=== PATIENT | female | born 1960 | race Caucasian/White ===

== ENCOUNTER → 2016-06-28 | Day surgery (SDC) | payer BC ==
[2016-06-15 10:35] VITALS: Ht 162.6 cm; Wt 68.2 kg
[~2016-06-28] VITALS: Ht 162.6 cm; Wt 68.2 kg
[~2016-06-28] MED LIST: ATROPINE SULFATE 0.1 MG/ML 5ML SYR IV PRN; BUPIVACAINE 0.5 % 5 MG/1 ML MPF 30ML VIAL ONE; BUPIVACAINE/EPINEPHRINE 0.5% MPF 1:200,000 30 ML VIAL ONE; CALC500C70 PO; CEFAZOLIN 2000 MG/60 ML D5W IV SCH; DEXAMETHASONE SOD INJ 4 MG/ML VIAL ONE; DTRSR10 PO; ESCI1TAB6 PO; EpHEDrine SULFATE INJ 50 MG/ML AMP IV PRN; EpHEDrine SULFATE INJ 50 MG/ML AMP ONE; FENTANYL CITRATE INJ 50 MCG/1 ML 2 ML VIAL IV PRN; FENTANYL CITRATE INJ 50 MCG/1 ML 2 ML VIAL ONE; GLUCTAB18; LACTATED RINGER'S 1000ML 1,000 ML IV SCH; LIDOCAINE HCL 2% 2 ML VIAL (20MG/ML) ONE; MIDAZOLAM HCL 1 MG/ML 2ML VIAL ONE; MULT-506 PO; MoRPHine SULFATE PF 1 MG/ML 10 ML AMP/VIAL ONE; ONDANSETRON INJ 2 MG/ML 2 ML VIAL IV PRN; ONDANSETRON INJ 2 MG/ML 2 ML VIAL ONE; PANT40TA PO; PROPOFOL IV EMULSION 10 MG/ML 20 ML VIAL IV ONE; ROPIVACAINE 0.5% 5 MG/ML 30 ML VIAL ONE; SODIUM CHLORIDE 0.9% 1000ML 1,000 ML IV SCH
--- NOTE | 2016-06-28 06:48 | History & Physical Bridge Note ---
H&P Re-Evaluation Bridge Note: I have examined the patient, reviewed the History & Physical and in the interval since the performance of the History & Physical I have noted the following changes of clinical significance: No changes noted
--- NOTE | 2016-06-28 06:50 | Discharge Instructions ---
Discharge Instructions Visit Reason for Visit: Left Great Toe Mtpj Arthritis, Left Knee Meniscus Discharge Goals Goal(s): Decrease discomfort, Improve function Medications Stopped Medications Name(s): Stopped Meloxicam five days ago. Activity Recommendations Activity Limitations: as noted below Lifting Limitations: until after follow-up appointment Exercise/Sports Limitations: until after follow-up appointment May Resume Sexual Activity: when tolerated Driving or Machine Use: resume 1 day after discharge Weightbearing Status: Left partial Anesthesia . Post Anesthesia Instructions: If you have had General Anesthesia or IV Sedation: * Do not drive today. * Resume driving when surgeon permits. * Do not make important decisions or sign legal documents today. * Call surgeon for: 1. Temperature elevations greater than 101 degrees F. 2. Uncontrollable pain. 3. Excessive bleeding. 4. Persistent nausea and vomiting. 5. Medication intolerance (nausea, vomiting or rash). * For nausea and vomiting use only clear liquids such as: tea, soda, bouillon until nausea subsides, then gradually increase diet as tolerated. * If you have any concerns or questions, call your surgeon's office. If physician is unavailable and it is an emergency, call 911 or go to the nearest emergency room. . Instructions / Follow-Up Instructions / Follow-Up The following are instructions to follow after your Arthroscopic Knee Surgery. ACTIVITY RECOMMENDATIONS: * Minimize activity until your first visit after surgery. * No excessive walking, jogging, sports or laboring. * Return to activity is individualized. Most patients are able to return to every day activities within one month. * Return to sports or intensive labor usually occurs at 2-3 months. * Driving is not permitted until at least your first postoperative visit at a minimum. Please ask your doctor when it is safe to resume driving. If you have an automatic vehicle and your left leg has been operated on, then you may begin driving as soon as you are comfortable and can drive safely. SCHOOL/WORK RECOMMENDATIONS: * You may return to sedentary work or school when you are feeling more comfortable. This is usually 3-7 days after surgery. * Expect increased discomfort with increased activity. Continue to elevate and ice the leg as much as possible. MEDICATIONS: * You will have a prescription for pain medication and an anti-inflammatory medication after surgery. * Use the pain medication for severe pain and the anti-inflammatory for less severe pain. Once the pain medication has run out, try to use the anti-inflammatory medication. If this is not effective, contact the office for assistance. * The pain medication may cause nausea, constipation and drowsiness. You should see how they affect you before driving or similar activity. * The anti-inflammatory medication may cause stomach upset and bleeding. If this occurs let your doctor know immediately . * Take a stool softener like Colace or a laxative like Senokot to prevent constipation. DIET: * Resume previous diet. SPECIAL CARE: ICE: You have the option of an ice cooler, gel packs or ice bags. * If you have an ice cooler, refer to the instructions for that device. The ice cooler may be used continuously. * If you do not have an ice cooler, you will need to use ice bags or gel packs. Do not apply ice directly to the skin. Use a thin dressing or rehana shirt between the skin and ice bag. Apply ice for 20-30 minutes and repeat every 2-4 hours. This is especially important for the first 7-10 days after surgery. Once the pain improves, use ice as needed. ELEVATION: * Keep your leg elevated at or above the level of your heart as much as possible. * Expect some increased discomfort and swelling if you are standing for any length of time. * When lying down, avoid placing anything under your knee. Rather, prop your leg up by placing several pillows under your heel or calf. DRESSING: * Your dressing will be changed at your first therapy appointment approximately 4-5 days after surgery. Band-aids, tape strips or gauze may be applied. You may then change your dressing daily. * Reapply dressing followed by the Arturo wrap or Tubi-supervisor marble stockinet and EBIce cooling pad (if chosen). * Always wash your hands prior to touching the incision area. * Once the stitches are removed, you may leave the wound open to air or cover with an Arturo wrap or Tubi-supervisor marble stockinet. * If you have been given a white elastic stocking (DEN hose), wear as much as possible for the first 1-3 weeks depending on swelling. * Expect some bloody drainage for the first few days after surgery. * Leave the tape strips, if present, in place for 5-7 days. * Band-aids and gauze may be changed daily. CRUTCHES: * You will need to use crutches after surgery. * You may gradually progress to full weight bearing as tolerated and wean off the crutches unless otherwise advised. * Your therapist can provide assistance weaning off crutches. * Patients who have a microfracture done may need to be toe-touch weight- bearing for 4-6 weeks. BATHING: * You may shower or sponge-bathe immediately after surgery. * The dressing will need to be covered with a plastic bag or plastic wrap until the dressing is changed on the fourth or fifth day after surgery. * Once the dressing has been changed on the fourth or fifth day after surgery, you may shower and get the incision wet. * Wash with regular soap and water. * Do not bathe (submerge the incision), soak, swim or use a hot tub until the incision is completely healed over with normal skin and the doctor has given the OK to proceed. * There is no need to apply any ointments, powders or salves to your incision. * Do not apply alcohol or hydrogen peroxide directly to the incision. * Diluted peroxide (50:50 mixture with sterile saline) may be used to clean dried blood from around the incision area. BRACE: * Bracing is generally not needed after routine Arthroscopic Knee surgery. THERAPY: * You will begin therapy four or five days after surgery. * Organized therapy with the therapist is important for the first 4-6 weeks after surgery. During that time you will attend therapy 1-3 times per week. * You will also need to do daily exercises for range of motion and strength as instructed. PROBLEMS/QUESTIONS: * If you have any problems such as severe pain, numbness, tingling or high fevers or if you have any questions, please contact the office at [phone]. * It is not uncommon to have some numbness and tingling after the surgery especially if you have had a nerve block done. This should gradually improve over the first 1- 2 days. If this persists longer or worsens please contact the office. FOLLOW UP VISIT: * If not already scheduled, please call the office at to schedule a follow-up appointment for 10 days, 6 weeks and 3 months after surgery. Diet Recommendations Recommended Home Diet: resume previous diet Pending Studies Studies pending at discharge: no Medical Emergencies . Who to Call and When: Medical Emergencies: If at any time you feel your situation is an emergency, please call 911 immediately. . Non-Emergent Contact Non-Emergency issues call your: Specialist Call Non-Emergent contact if: temperature is above 101.5 . . "Provider Documentation" section prepared by Phil Lau.
--- NOTE | 2016-06-28 08:46 | [facility] Post Operative Brief Note ---
Immediate Operative Summary Operative Date Jun 28, 2016. Pre-Operative Diagnosis Left Great Toe Metatarsophalangeal Joint Arthritis, Left Knee Meniscus Tear, Degenerative Joint Disease, Retained Hardware Post-Operative Diagnosis Same Procedure(s) Performed Left Knee Arthroscopy, Chondroplasty of Patellofemoral Joint, Partial Medial Meniscectomy, Hardware Removal Left Tibia, Left Great Toe Chielectomy Surgeon Dr. Lau Copier Operator Surgeon(s) Jenna Barry PA-C Estimated Blood Loss Trace Findings mtp djd/pf djd/mm tear/s/p acl Fluids (cc crystalloids) 700cc Specimens None Drains none Anesthesia lma/block Complication(s) None Disposition Recovery Room / PACU
--- NOTE | 2016-06-28 09:14 | OPERATIVE REPORT ---
DATE OF OPERATION: 06/28/2016 PREOPERATIVE DIAGNOSIS: Left great toe hallux rigidus, left knee medial meniscal tear with degenerative joint disease, and left tibia retained hardware. POSTOPERATIVE DIAGNOSIS: Left great toe, left knee, and left tibia same. PROCEDURE: Left knee arthroscopy, chondroplasty of the patellofemoral joint, partial medial meniscectomy, open hardware removal of left tibia, and left great toe cheilectomy. SURGEON: Dr. Lau. DRILLING FIELD SPECIALIST: Matrin Barry PA-C. HISTORY OF PRESENT ILLNESS: This 55-year-old white female presented to the office with complaints of medial left knee pain, as well as sensitivity over some previously placed ACL hardware. She also had a bone spur and pain in her left great toe. She had tried conservative care measures without success. The patient elected to proceed with surgical intervention on all 3 sites after being educated about potential risks and outcomes. OPERATION: The patient was administered a regional block and then taken to the operating room where she was given a general anesthetic. She was prepped and draped in the usual sterile fashion. Please see Dr. Lau's operative report for specifics of the procedure. I was present for the entire case from initial patient positioning through final wound closure. Assistance was provided in tissue retraction, hemostasis, arthroscopy, and final wound closure. The patient was taken to the recovery room in satisfactory condition. I attest to the content of the Intraoperative Record and any orders documented therein. Any exceptio ns are noted below.
--- NOTE | 2016-06-28 09:21 | OPERATIVE REPORT ---
DATE OF OPERATION: 06/28/2016 SURGEON: Phil Lau MD GARBAGE COLLECTOR SUPERVISOR: Martin Barry PA-C. No resident or fellow available. PREOPERATIVE DIAGNOSES: 1. Hallux rigidus, left great toe. 2. Retained hardware, left proximal tibia. 3. Degenerative disease, medial meniscus tear, left knee and a history of ACL reconstruction. OPERATIONS PERFORMED: 1. Exam under anesthesia. 2. Diagnostic arthroscopy, left knee with partial medial meniscectomy and chondroplasty of patellofemoral joint. 3. Removal of the tibia hardware through separate incision. 4. Arthrotomy of MTP joint with cheilectomy of the left great toe. DESCRIPTION OF PROCEDURE: The patient was appropriately identified, site verified, consent verified, and 2 grams of Ancef confirmed as being given. The left lower extremity was examined revealing slight asymmetry to Alfredito with an endpoint, full range of motion, some patellofemoral incarceration and slight patella baja. A towel revealed decreased extension basically to about 5 degrees at most. Leg was then prepped and draped in usual routine fashion from toes to thigh and tourniquet was applied. After the leg was prepped and draped, tourniquet was inflated to 275 mmHg after exsanguination of limb with a rubber Esmarch bandage. The anteromedial tibia was exposed through the old incision. Dissection carried down to the bone and then the screw and washer and a suture removed, which was then irrigated and closed with 2-0 Vicryl and horizontal 3-0 nylon suture. The knee was then scoped through an inframedial and infralateral portal. Inspection of the joint revealed extensive synovitis, which was debrided anteriorly. A chondroplasty was performed of the trochlea and of the patella that had grade 3 changes on the patella and grade 3-4 changes on the trochlea. Some minor loose debris was removed. The lateral compartment was relatively healthy. There were post-surgical changes on the central third of the lateral meniscus. The ACL graft had some minor fraying, which was debrided. The bulk of it was intact. The medial meniscus had a posterior horn tear with a flap and horizontal cleavage. It was trimmed to a stable balanced contoured rim with hand and power instrumentation. There were some grade 2-3 changes of the posteromedial tibia. There were also some grade 2 changes of the medial femoral condyle. This part of the procedure was then terminated. All instruments and fluid removed. The portals closed with 3-0 nylon. The prepped part of the foot was then opened up and then repainted with Betadine and then, the MTP dorsal medial incision made. Care taken to protect the sensory nerves. The joint was entered. The joint was then dissected around by releasing some of the soft tissue with silver bunionectomy was performed and a cheilectomy performed. There was an extensive osteophyte superiorly and laterally on the MTP joint. There was a grade 4 area of bare cartilages. This was all removed as well. Once this was resected, the toe was then inspected. The remaining articular surface of the metatarsal head had grade 2 changes and the base of the proximal phalanx was relatively healthy. The wound was then irrigated. The capsule was then closed. The extensor hallucis longus was recentered. Once this was done, the extension was improved about 5 degrees to about 45 degrees. The wound was then irrigated and then closed with horizontal 3-0 nylon sutures. Appropriate dressing applied as well as DEN. The patient was then transferred to recovery room in satisfactory condition having tolerated the procedure well. Estimated blood loss was trace. Crystalloid was 700 mL. DVT prophylaxis per protocol. She can be weightbearing to tolerance. I attest to the content of the Intraoperative Record and any orders documented therein. Any exceptions are noted below. KAROL
--- NOTE | 2016-06-28 09:21 | Anesthesia Progress Nt - [facility] ---
Anesthesia Post Op Note Date & Time Jun 28, 2016 at 09:21 Vital Signs Pain Intensity: 0 Vital Signs Past 12 Hours Date Time Temp Pulse Resp B/P Pulse Ox O2 Delivery O2 Flow Rate FiO2 06/28/16 09:16 81 18 06/28/16 09:16 81 18 94 06/28/16 09:13 135/84 06/28/16 09:12 75 24 100 06/28/16 09:12 83 17 98 06/28/16 09:09 127/83 06/28/16 09:03 137/89 06/28/16 09:02 74 16 100 06/28/16 09:02 75 16 06/28/16 08:58 137/81 06/28/16 08:57 77 18 100 06/28/16 08:57 79 23 100 06/28/16 08:53 133/78 06/28/16 08:52 36.6 76 12 130/72 100 Mask 6 06/28/16 07:40 68 06/28/16 07:40 68 14 99 06/28/16 07:38 124/75 06/28/16 07:35 68 06/28/16 07:35 67 16 99 06/28/16 07:33 121/71 06/28/16 07:30 67 26 98 06/28/16 07:30 67 06/28/16 07:28 119/68 06/28/16 07:25 70 06/28/16 07:25 70 12 97 06/28/16 07:23 124/70 06/28/16 07:20 73 8 97 06/28/16 07:20 73 06/28/16 07:18 120/70 06/28/16 07:15 71 06/28/16 07:15 71 11 98 06/28/16 06:37 36.6 71 16 136/81 99 Room Air Notes Mental Status: alert / awake / arousable, participated in evaluation Pt Amnestic to Procedure: Yes Nausea / Vomiting: adequately controlled Pain: adequately controlled Airway Patency, RR, SpO2: stable & adequate BP & HR: stable & adequate Hydration State: stable & adequate Anesthetic Complications: no major complications apparent
[2016-06-28 09:39] VITALS: TEMP 36.6
[2016-06-28 10:10] VITALS: BP 137/91; PULSE 81; O2SAT 95
== END | disposition home or self-care (01) ==
LOC: X.SURG 06:18
PROVIDERS: ATTEND Physical Medicine & Rehabilitation Sports Medicine
DX: M23.222 Derangement of posterior horn of medial meniscus due to old tear or injury, left knee (principal); T84.84XA Pain due to internal orthopedic prosthetic devices, implants and grafts, initial encounter; Y83.1 Surgical operation with implant of artificial internal device as the cause of abnormal reaction of the patient, or of later complication, without mention of misadventure at the time of the procedure; M20.22 Hallux rigidus, left foot; M54.5 Low back pain; E66.9 Obesity, unspecified; Z88.0 Allergy status to penicillin

== ENCOUNTER → 2016-08-15 | Outpatient (CLI) | payer BC ==
[~2016-08-15] MED LIST changes: -ATROPINE SULFATE 0.1 MG/ML 5ML SYR IV PRN; -BUPIVACAINE 0.5 % 5 MG/1 ML MPF 30ML VIAL ONE; -BUPIVACAINE/EPINEPHRINE 0.5% MPF 1:200,000 30 ML VIAL ONE; -CEFAZOLIN 2000 MG/60 ML D5W IV SCH; -DEXAMETHASONE SOD INJ 4 MG/ML VIAL ONE; -EpHEDrine SULFATE INJ 50 MG/ML AMP IV PRN; -EpHEDrine SULFATE INJ 50 MG/ML AMP ONE; -FENTANYL CITRATE INJ 50 MCG/1 ML 2 ML VIAL IV PRN; -FENTANYL CITRATE INJ 50 MCG/1 ML 2 ML VIAL ONE; -LACTATED RINGER'S 1000ML 1,000 ML IV SCH; -LIDOCAINE HCL 2% 2 ML VIAL (20MG/ML) ONE; -MIDAZOLAM HCL 1 MG/ML 2ML VIAL ONE; -MoRPHine SULFATE PF 1 MG/ML 10 ML AMP/VIAL ONE; -ONDANSETRON INJ 2 MG/ML 2 ML VIAL IV PRN; -ONDANSETRON INJ 2 MG/ML 2 ML VIAL ONE; -PROPOFOL IV EMULSION 10 MG/ML 20 ML VIAL IV ONE; -ROPIVACAINE 0.5% 5 MG/ML 30 ML VIAL ONE; -SODIUM CHLORIDE 0.9% 1000ML 1,000 ML IV SCH
== END | disposition home or self-care (01) ==
LOC: C.RDSM 09:45
PROVIDERS: ATTEND Physical Medicine & Rehabilitation Sports Medicine
DX: M12.9 Arthropathy, unspecified (principal)

== ENCOUNTER → 2017-04-07 | Outpatient (CLI) | payer BC ==
[2017-04-07 13:18] LABS: BLOOD UREA NITROGEN 18 mg/dl (7-18); CREATININE 0.66 mg/dl (0.60-1.20); GLUCOSE 90 mg/dl (70-99)
[2017-04-07 13:19] LABS: BUN/CREATININE RATIO 27.8 (10-20); CALCIUM 8.6 mg/dl (8.5-10.1); CARBON DIOXIDE 26 mmol/L (21-32); CHLORIDE 107 mmol/L (98-107); POTASSIUM 4.3 mmol/L (3.5-5.1); SODIUM 141 mmol/L (136-145)
[2017-04-07 13:23] LABS: CHOLESTEROL 220 mg/dl (0-200); HDL CHOLESTEROL 73 mg/dl; LDL CHOLESTEROL CALCULATED 127 mg/dl; TRIGLYCERIDES 98 mg/dl (0-150); VERY LOW DENSITY LIPOPROT CALC 20 mg/dl
== END | disposition home or self-care (01) ==
LOC: C.LABPVFM 08:43
PROVIDERS: ATTEND Nurse Practitioner Family
DX: Z00.00 Encounter for general adult medical examination without abnormal findings (principal); E78.5 Hyperlipidemia, unspecified

== ENCOUNTER → 2017-04-28 | Outpatient (CLI) | payer BC ==
--- NOTE | 2017-05-01 15:18 | MAMMOGRAPHY REPORT ---
BILATERAL DIGITAL SCREENING MAMMOGRAM TOMOSYNTHESIS WITH CAD: 04/28/2017 CLINICAL HISTORY: Routine screening. Patient reports chronic right breast pain. TECHNIQUE: Breast tomosynthesis in addition to standard 2D mammography was performed. Current study was also evaluated with a Computer Aided Detection (CAD) system. COMPARISON: Comparison is made to exams dated: 03/23/2016 mammogram, 08/19/2015 mammogram, 07/29/2014 m ammogram, 06/12/2013 mammogram, 10/27/2011 mammogram, and 07/23/2010 mammogram - [facility] enter. BREAST COMPOSITION: There are scattered areas of fibroglandular density in both breasts. FINDINGS: No suspicious masses, calcifications, or areas of architectural distortion are noted in ei ther breast. There has been no significant interval change compared to prior exams. Scattered bilater al benign-appearing calcifications are not significantly changed. IMPRESSION: ACR BI-RADS CATEGORY 2: BENIGN There is no mammographic evidence of malignancy. A 1 year screening mammogram is recommended. Recomm end continued clinical follow-up for chronic right breast pain. The patient will receive written not ification of the results. Approximately 10% of breast cancers are not detected with mammography. A negative mammographic report should not delay biopsy if a clinically suggestive mass is present. Keya Pena M.D. /:04/28/2017 16:44:46 Refrigeration Engineer: Mariana FRAIRE(Jones)(Bonnie)([place]), [facility] letter sent: Normal 1/2 BI-RADS Code: ACR BI-RADS Category 2: Benign
== END | disposition home or self-care (01) ==
LOC: C.MAMM 16:13
PROVIDERS: ATTEND Obstetrics & Gynecology
DX: Z12.31 Encounter for screening mammogram for malignant neoplasm of breast (principal)

== ENCOUNTER → 2017-06-15 | Outpatient (CLI) | payer BC | END | disposition home or self-care (01) | LOC: C.PAPS 11:50 | PROVIDERS: ATTEND Obstetrics & Gynecology | DX: Z01.419 Encounter for gynecological examination (general) (routine) without abnormal findings (principal) ==

== ENCOUNTER → 2017-10-04 | Outpatient (CLI) | payer BC ==
--- NOTE | 2017-10-04 08:29 | DIAGNOSTIC IMAGING REPORT ---
R KNEE 3 VIEWS HISTORY: 56 years-old Female RIGHT KNEE PAIN/LEFT KNEE DJD chronic bilateral knee pain COMPARISON: None available TECHNIQUE: Standing AP view with sunrise, lateral and AP axial views of the bilateral knees FINDINGS: RIGHT: There is mild tricompartmental osteoarthritis, most pronounced within the medial compartment without acute fracture, dislocation, large joint effusion or opaque foreign body. LEFT: Tricompartmental osteoarthritis, mild within the lateral compartment and moderate within the medial and patellofemoral compartments. Postoperative changes from prior ACL repair. There is no acute fracture, dislocation or opaque foreign body. Small joint effusion. IMPRESSION: 1. No acute fracture or dislocation. 2. Tricompartmental osteoarthritis of the bilateral knees, left greater than right as above. 3. Prior left-sided ACL repair. 4. Small left joint effusion. The above report was generated using voice recognition software. It may contain grammatical, syntax or spelling errors. Electronically signed by: Trenton Kidd M.D. 10/04/2017 8:28 AM Dictated Date/Time: 10/04/2017 8:11 AM
== END | disposition home or self-care (01) ==
LOC: C.RDSM 15:10
PROVIDERS: ATTEND Physician Assistant
DX: M17.0 Bilateral primary osteoarthritis of knee (principal); Z98.890 Other specified postprocedural states